=== PATIENT | male | born 1955 | race Caucasian/White ===

== ENCOUNTER 2020-03-04 22:53 | Inpatient (IN) | payer OTHER ==
[~2020-03-04] VITALS: Ht 167.6 cm; Wt 82.6 kg
[~2020-03-04 22:53] MED LIST: ATOR80TA PO; CLOP75TA33 PO; FURO-151 PO; FURO80TA87 MT; LEVO25TA7 PO; MIDO5TAB4 MT; POTA25TA8 PO
[2020-03-04] MEDS ORDERED: FUROSEMIDE 40MG/4ML VIAL IV ONE (23:45)
[2020-03-05 00:04] LABS: EOSINOPHILS % 0.4 % (0.0-5.0); HEMATOCRIT. 38.2 % (42.0-52.0); HEMOGLOBIN. 12.8 g/dL (14.0-18.0); LYMPHOCYTES % 19.2 % (20.0-50.0); MEAN CORPUSCULAR HEMOGLOBIN 31.7 pg (28.0-32.0); MEAN CORPUSCULAR VOLUME 94.8 fL (80.0-94.0); MEAN PLATELET VOLUME 9.1 fl (7.4-10.4); MONOCYTES % 10.3 % (2.0-8.0); NEUTROPHILS % 69.1 % (40.0-76.0); PLATELET 241 x1000/uL (130-400); RED BLOOD CELL COUNT 4.04 mill/uL (4.7-6.1); RED CELL DISTRIBUTION WIDTH 19.5 % (11.6-14.6)
[2020-03-05 00:08] LABS: CHLORIDE 89 mEq/L (98-107)
[2020-03-05 04:30] VITALS: BP 104/82
[2020-03-05] MEDS ORDERED: METO5TAB7 PO (05:34)
[2020-03-05] MEDS ORDERED: DEXTROSE 50% WATER 50ML SYRINGE IV PRN (06:45)
[2020-03-05] MEDS ORDERED: FUROSEMIDE 40MG/4ML VIAL IVP SCH (07:00)
[2020-03-05] MEDS ORDERED: NON FORMULARY PATIENT HOME MED XX SCH (07:00)
[2020-03-05] MEDS ORDERED: LEVOTHYROXINE SODIUM 25MCG TABLET PO SCH (07:20)
[2020-03-05] MEDS: INSULIN LISPRO 100 UNITS/ML SUBCUT SCH ×4 (07:34→22:01)
[2020-03-05] MEDS: BLOOD SUGAR DIAGNOSTIC STRIP TEST SCH ×4 (07:34→21:43)
[2020-03-05 08:00] VITALS: BP 101/74
[2020-03-05] MEDS: MIDODRINE HCL 5MG TABLET PO SCH ×2 (08:54→13:17)
[2020-03-05] MEDS: ENOXAPARIN 40MG/0.4ML SYR SUBCUT SCH (08:55)
[2020-03-05] MEDS: CLOPIDOGREL 75MG TABLET PO SCH (08:55)
[2020-03-05] MEDS: POTASSIUM CHLORIDE 20MEQ TABLET SR PO SCH (08:55)
[2020-03-05] MEDS ORDERED: MEDICATION NOT ON FORMULARY EA (Metolazone 5 MG) PO SCH (09:00)
[2020-03-05] MEDS ORDERED: POTASSIUM BICARB/CIT ACID 25 MEQ TABLET.EFF PO SCH (09:00)
[2020-03-05] MEDS: METOLAZONE 5MG TABLET PO SCH (10:37)
[2020-03-05 12:00] VITALS: BP 105/78
[2020-03-05 12:10] LABS: BG BASE EXCESS 1.3 mmol/L (-2.0-2.0); BG CARBOXYHEMOGLOBIN 0.5 % (0.5-1.5); BG DEOXYHEMOGLOBIN 5.3 % (0.0-5.0); BG FRACTION INSPIRED OXYGEN 21; BG HCO3 ACT 24.1 mmol/L (22.0-26.0); BG METHEMOGLOBIN 0.4 % (0.0-1.5); BG OXYGEN SATURATION 94.7 % (92.0-98.5); BG OXYHEMOGLOBIN 93.8 % (94.0-97.0); BG PCO2 32.4 mmHg (35.0-45.0); BG PO2 74.9 mmHg (75.0-100.0); BG SAMPLE SITE RIGHT RADIAL; BG VENT MODE ROOM AIR
[2020-03-05] MEDS ORDERED: AZITHROMYCIN 500 MG in DEXT 5% WATER 250 ML IV SCH (14:00)
[2020-03-05] MEDS ORDERED: CEFTRIAXONE 1 G PREMIX 50 ML IV SCH (14:00)
[2020-03-05] MEDS ORDERED: LEVOFLOXACIN 500MG PREMIX 100 ML IV SCH (15:00)
[2020-03-05 15:30] VITALS: BP 109/78
[2020-03-05] MEDS: FUROSEMIDE 100MG/10ML VIAL IVP SCH (17:24)
[2020-03-05] MEDS: IPRATROPIUM/ALBUTEROL 0.5-3(2.5)MG/3ML NEB HHN SCH (17:25)
[2020-03-05 20:00] VITALS: BP 93/66
[2020-03-05] MEDS: CARVEDILOL 3.125 MG TABLET PO SCH (21:00)
[2020-03-05] MEDS: ATORVASTATIN CALCIUM 40MG TABLET PO SCH (21:17)
[2020-03-06] VITALS (9 sets, daily range): BP systolic 86–108; BP diastolic 58–75
[2020-03-06] MEDS: IPRATROPIUM/ALBUTEROL 0.5-3(2.5)MG/3ML NEB HHN SCH ×4 (06:00→17:49)
[2020-03-06] MEDS: BLOOD SUGAR DIAGNOSTIC STRIP TEST SCH ×4 (07:37→21:47)
[2020-03-06] MEDS: INSULIN LISPRO 100 UNITS/ML SUBCUT SCH ×4 (07:37→21:00)
[2020-03-06] MEDS: LEVOTHYROXINE SODIUM 50MCG TABLET PO SCH (07:45)
[2020-03-06 08:40] LABS: T4 FREE 0.67 ng/dL (0.76-1.46)
[2020-03-06] MEDS: POTASSIUM CHLORIDE 20MEQ TABLET SR PO SCH (08:43)
[2020-03-06] MEDS: ASPIRIN 81MG TABLET PO SCH (08:43)
[2020-03-06] MEDS: CLOPIDOGREL 75MG TABLET PO SCH (08:43)
[2020-03-06] MEDS: FUROSEMIDE 100MG/10ML VIAL IVP SCH ×2 (08:44→17:48)
[2020-03-06] MEDS: ENOXAPARIN 40MG/0.4ML SYR SUBCUT SCH (08:45)
[2020-03-06] MEDS: CARVEDILOL 3.125 MG TABLET PO SCH ×2 (09:00→21:00)
[2020-03-06] MEDS: METOLAZONE 5MG TABLET PO SCH (11:07)
[2020-03-06] MEDS ORDERED: LACTULOSE 20G/30ML UDC PO SCH (13:45)
[2020-03-06] MEDS: LEVOFLOXACIN 250MG PREMIX 50 ML IV SCH (14:57)
[2020-03-06] MEDS ORDERED: BISACODYL 10MG SUPP PR PRN (18:45)
[2020-03-06] MEDS: ATORVASTATIN CALCIUM 40MG TABLET PO SCH (21:46)
[2020-03-07 04:00] VITALS: BP 102/68
[2020-03-07] MEDS: BLOOD SUGAR DIAGNOSTIC STRIP TEST SCH ×4 (06:31→21:24)
[2020-03-07] MEDS: LEVOTHYROXINE SODIUM 50MCG TABLET PO SCH (06:31)
[2020-03-07] MEDS: BISACODYL 5MG TABLET PO PRN (06:31)
[2020-03-07 07:33] LABS: BASOPHILS % 0.2 % (0.0-2.0); HEMATOCRIT. 35.5 % (42.0-52.0); HEMOGLOBIN. 11.5 g/dL (14.0-18.0); MEAN CORPUSCULAR HEMOGLOBIN 31.2 pg (28.0-32.0); MEAN CORPUSCULAR VOLUME 95.9 fL (80.0-94.0); MEAN PLATELET VOLUME 9.2 fl (7.4-10.4); MONOCYTES % 7.5 % (2.0-8.0); NEUTROPHILS % 83.3 % (40.0-76.0); PLATELET 194 x1000/uL (130-400); RED CELL DISTRIBUTION WIDTH 18.9 % (11.6-14.6)
[2020-03-07 08:00] VITALS: BP 106/73
[2020-03-07] MEDS: CARVEDILOL 3.125 MG TABLET PO SCH ×2 (09:00→20:55)
[2020-03-07] MEDS: POTASSIUM CHLORIDE 20MEQ TABLET SR PO SCH (09:07)
[2020-03-07] MEDS: ASPIRIN 81MG TABLET PO SCH (09:08)
[2020-03-07] MEDS: ENOXAPARIN 40MG/0.4ML SYR SUBCUT SCH (09:08)
[2020-03-07] MEDS: CLOPIDOGREL 75MG TABLET PO SCH (09:08)
[2020-03-07] MEDS: METOLAZONE 5MG TABLET PO SCH (09:09)
[2020-03-07] MEDS: FUROSEMIDE 100MG/10ML VIAL IVP SCH ×2 (09:11→16:15)
[2020-03-07] MEDS: INSULIN LISPRO 100 UNITS/ML SUBCUT SCH ×4 (09:20→21:00)
[2020-03-07] MEDS: IPRATROPIUM/ALBUTEROL 0.5-3(2.5)MG/3ML NEB HHN SCH ×3 (09:47→22:00)
[2020-03-07 12:00] VITALS: BP 98/72
[2020-03-07] MEDS: LEVOFLOXACIN 250MG PREMIX 50 ML IV SCH (15:16)
[2020-03-07 16:00] VITALS: BP 97/68
[2020-03-07] MEDS: PANTOPRAZOLE SODIUM 40 MG/VIAL IV SCH (16:15)
[2020-03-07] MEDS ORDERED: MORPHINE SULFATE 2 MG/ML CPJ (NOT FOR IM USE) IV NR (18:45)
[2020-03-07 18:51] LABS: CLARITY URINE CLOUDY (CLEAR); COLOR URINE ORANGE (YELLOW); KETONES URINE NEGATIVE (NEGATIVE); LEUKOCYTE ESTERASE URINE 1+ (NEGATIVE); NITRITE URINE NEGATIVE (NEGATIVE); OCCULT BLOOD URINE 3+ (NEGATIVE); PROTEIN URINE 3+ (NEGATIVE); SPECIFIC GRAVITY URINE 1.015 (1.005-1.030)
[2020-03-07 20:00] VITALS: BP 101/70
[2020-03-07] MEDS: ATORVASTATIN CALCIUM 40MG TABLET PO SCH (21:00)
[2020-03-08] VITALS: BP 107/62
[2020-03-08] MEDS: IPRATROPIUM/ALBUTEROL 0.5-3(2.5)MG/3ML NEB HHN SCH ×3 (03:04→15:07)
[2020-03-08 06:10] LABS: HEMATOCRIT. 33.1 % (42.0-52.0); MEAN CORPUSCULAR HEMOGLOBIN 30.9 pg (28.0-32.0); MEAN CORPUSCULAR VOLUME 93.6 fL (80.0-94.0); MEAN PLATELET VOLUME 9.3 fl (7.4-10.4); PLATELET 192 x1000/uL (130-400); RED BLOOD CELL COUNT 3.54 mill/uL (4.7-6.1); RED CELL DISTRIBUTION WIDTH 19.3 % (11.6-14.6)
[2020-03-08] MEDS: LEVOTHYROXINE SODIUM 50MCG TABLET PO SCH (06:34)
[2020-03-08] MEDS: BLOOD SUGAR DIAGNOSTIC STRIP TEST SCH ×4 (06:34→20:20)
[2020-03-08 06:41] LABS: CHLORIDE 89 mEq/L (98-107)
[2020-03-08 08:00] VITALS: BP 101/64
[2020-03-08] MEDS: CARVEDILOL 3.125 MG TABLET PO SCH (09:00)
[2020-03-08] MEDS: PANTOPRAZOLE SODIUM 40 MG/VIAL IV SCH ×2 (10:14→20:20)
[2020-03-08] MEDS: METOLAZONE 5MG TABLET PO SCH (10:15)
[2020-03-08] MEDS: FUROSEMIDE 100MG/10ML VIAL IVP SCH ×2 (10:15→17:36)
[2020-03-08] MEDS: POTASSIUM CHLORIDE 20MEQ TABLET SR PO SCH (10:15)
[2020-03-08] MEDS: INSULIN LISPRO 100 UNITS/ML SUBCUT SCH ×4 (10:18→20:56)
[2020-03-08] MEDS: LEVOFLOXACIN 250MG TABLET PO SCH (10:19)
[2020-03-08 12:00] VITALS: BP 97/67
[2020-03-08 13:07] LABS: PLATELET ESTIMATE NORMAL
[2020-03-08 18:45] LABS: HEPATITIS B SURFACE ANTIGEN NEGATIVE
[2020-03-08 19:14] LABS: HEPATITIS A AB IGM NEGATIVE (NEGATIVE)
[2020-03-08] MEDS: ATORVASTATIN CALCIUM 40MG TABLET PO SCH (20:20)
[2020-03-08] MEDS: BISACODYL 5MG TABLET PO PRN (20:20)
[2020-03-09] VITALS (20 sets, daily range): BP systolic 71–131; BP diastolic 34–76
[2020-03-09] MEDS: BLOOD SUGAR DIAGNOSTIC STRIP TEST SCH ×4 (06:36→21:06)
[2020-03-09] MEDS: LEVOTHYROXINE SODIUM 50MCG TABLET PO SCH (06:46)
[2020-03-09] MEDS ORDERED: FENTANYL CITRATE/PF 50MCG/ML 2ML VIAL ONE (08:22)
[2020-03-09] MEDS ORDERED: PROPOFOL 200MG/20ML VIAL IV ONE (08:22)
[2020-03-09] MEDS ORDERED: MIDAZOLAM HCL 2 MG/2 ML VIAL ONE (08:22)
[2020-03-09] MEDS ORDERED: DIPHENHYDRAMINE 50MG/ML VIAL ONE (08:23)
[2020-03-09] MEDS ORDERED: IODIXANOL 320MG/ML 100 ML BOTTLE IV ONE (08:35)
[2020-03-09] MEDS ORDERED: LIDOCAINE HCL 1% 20ML VIAL (Pyxis) INJ ONE ×2 (08:35→10:50)
[2020-03-09] MEDS: POTASSIUM CHLORIDE 20MEQ TABLET SR PO SCH ×2 (09:00→17:00)
[2020-03-09] MEDS ORDERED: CARVEDILOL 3.125 MG TABLET PO SCH (09:00)
[2020-03-09] MEDS: PANTOPRAZOLE SODIUM 40 MG/VIAL IV SCH ×2 (09:00→20:54)
[2020-03-09] MEDS ORDERED: METOLAZONE 2.5MG TABLET PO SCH (09:00)
[2020-03-09] MEDS: FUROSEMIDE 100MG/10ML VIAL IVP SCH ×3 (09:00→17:00)
[2020-03-09] MEDS: METOLAZONE 5MG TABLET PO SCH ×2 (09:00→13:51)
[2020-03-09] MEDS: MILRINONE 20MG-DEXT 5% PREMIX 100 ML IV SCH ×4 (10:00→23:18)
[2020-03-09] MEDS ORDERED: MILRINONE 20MG-DEXT 5% PREMIX 100 ML IV SCH (10:00)
[2020-03-09] MEDS ORDERED: SODIUM BICARBONATE 4% (2.4MEQ) 5ML VIAL IV ONE (10:50)
[2020-03-09] MEDS: INSULIN LISPRO 100 UNITS/ML SUBCUT SCH ×3 (12:20→21:00)
[2020-03-09] MEDS ORDERED: MORPHINE SULFATE 2 MG/ML CPJ (NOT FOR IM USE) IV PRN (13:30)
[2020-03-09] MEDS: LEVOFLOXACIN 250MG TABLET PO SCH (13:51)
[2020-03-09] MEDS: HYDROCODONE/ACETAMINOPHEN 5/325MG TABLET PO PRN (13:51)
[2020-03-09] MEDS ORDERED: POTASSIUM CHLORIDE 20MEQ/PACKET PO ONE (20:45)
[2020-03-09] MEDS: ATORVASTATIN CALCIUM 40MG TABLET PO SCH (20:54)
[2020-03-10] VITALS (16 sets, daily range): BP systolic 87–123; BP diastolic 40–70
[2020-03-10] MEDS: IPRATROPIUM/ALBUTEROL 0.5-3(2.5)MG/3ML NEB HHN SCH ×5 (01:42→20:39)
[2020-03-10] MEDS: LEVOTHYROXINE SODIUM 50MCG TABLET PO SCH (05:37)
[2020-03-10] MEDS: BLOOD SUGAR DIAGNOSTIC STRIP TEST SCH ×4 (05:57→21:14)
[2020-03-10 06:50] LABS: HEMATOCRIT. 30.7 % (42.0-52.0); HEMOGLOBIN. 10.4 g/dL (14.0-18.0); MEAN CORPUSCULAR HEMOGLOBIN 31.4 pg (28.0-32.0); MEAN PLATELET VOLUME 8.9 fl (7.4-10.4); PLATELET 144 x1000/uL (130-400); RED CELL DISTRIBUTION WIDTH 19.6 % (11.6-14.6)
[2020-03-10] MEDS: INSULIN LISPRO 100 UNITS/ML SUBCUT SCH ×4 (07:20→21:00)
[2020-03-10] MEDS: POTASSIUM CHLORIDE 20MEQ TABLET SR PO SCH (09:00)
[2020-03-10] MEDS: PANTOPRAZOLE SODIUM 40 MG/VIAL IV SCH ×2 (09:00→21:12)
[2020-03-10] MEDS: FUROSEMIDE 100MG/10ML VIAL IVP SCH ×2 (09:00→18:27)
[2020-03-10] MEDS: METOLAZONE 5MG TABLET PO SCH (09:00)
[2020-03-10] MEDS ORDERED: POTASSIUM CHLORIDE INJ 40 MEQ in DEXT 5% WATER 250 ML IV SCH (09:00)
[2020-03-10 10:20] LABS: PLATELET ESTIMATE NORMAL
[2020-03-10] MEDS ORDERED: PROPOFOL 200MG/20ML VIAL IV ONE (10:36)
[2020-03-10] MEDS ORDERED: MIDAZOLAM HCL 2 MG/2 ML VIAL ONE (10:36)
[2020-03-10] MEDS ORDERED: SUCCINYLCHOLINE CHLORIDE 200MG/10ML IV ONE (10:36)
[2020-03-10] MEDS ORDERED: LIDOCAINE HCL 1% 20ML VIAL (Pyxis) INJ ONE (10:36)
[2020-03-10] MEDS ORDERED: IODIXANOL 320MG/ML 100 ML BOTTLE IV ONE (10:50)
[2020-03-10] MEDS ORDERED: GENTAMICIN SULF 40MG/ML 2ML VIAL ONE (12:18)
[2020-03-10] MEDS ORDERED: HYDROCODONE/ACETAMINOPHEN 5/325MG TABLET PO PRN (13:00)
[2020-03-10] MEDS: LEVOFLOXACIN 250MG TABLET PO SCH (13:47)
[2020-03-10] MEDS: DOCUSATE SODIUM 250MG CAPSULE PO SCH ×2 (13:47→21:00)
[2020-03-10] MEDS: MILRINONE 20MG-DEXT 5% PREMIX 100 ML IV SCH ×3 (13:50→23:44)
[2020-03-10] MEDS ORDERED: POTASSIUM CHLORIDE 20MEQ TABLET SR PO NR (15:45)
[2020-03-10] MEDS: HYDROCODONE/ACETAMINOPHEN 5/325MG TABLET PO PRN (16:40)
[2020-03-10] MEDS ORDERED: POTASSIUM CHLORIDE INJ 40 MEQ in DEXT 5% WATER 250 ML IV NR (17:00)
[2020-03-10] MEDS: CARVEDILOL 3.125 MG TABLET PO SCH (21:00)
[2020-03-10] MEDS: ATORVASTATIN CALCIUM 40MG TABLET PO SCH (21:13)
[2020-03-10] MEDS: CEFAZOLIN 1000MG PREMIX 50 ML IV SCH (21:14)
[2020-03-10] MEDS: BISACODYL 5MG TABLET PO PRN (21:14)
[2020-03-11] VITALS (16 sets, daily range): BP systolic 87–107; BP diastolic 44–71
[2020-03-11] MEDS ORDERED: POTASSIUM CHLORIDE INJ 40 MEQ in DEXT 5% WATER 250 ML IV SCH (01:00)
[2020-03-11] MEDS: IPRATROPIUM/ALBUTEROL 0.5-3(2.5)MG/3ML NEB HHN SCH ×3 (01:51→13:33)
[2020-03-11] MEDS: CEFAZOLIN 1000MG PREMIX 50 ML IV SCH (05:42)
[2020-03-11] MEDS: BLOOD SUGAR DIAGNOSTIC STRIP TEST SCH ×4 (05:56→20:18)
[2020-03-11] MEDS: LEVOTHYROXINE SODIUM 50MCG TABLET PO SCH (05:56)
[2020-03-11 07:55] LABS: HEMATOCRIT. 30.3 % (42.0-52.0); HEMOGLOBIN. 10.1 g/dL (14.0-18.0); MEAN CORPUSCULAR HEMOGLOBIN 31.1 pg (28.0-32.0); MEAN PLATELET VOLUME 9.1 fl (7.4-10.4); PLATELET 120 x1000/uL (130-400); RED BLOOD CELL COUNT 3.26 mill/uL (4.7-6.1); RED CELL DISTRIBUTION WIDTH 19.7 % (11.6-14.6)
[2020-03-11] MEDS: PANTOPRAZOLE SODIUM 40 MG/VIAL IV SCH ×2 (08:37→20:27)
[2020-03-11] MEDS: FUROSEMIDE 100MG/10ML VIAL IVP SCH ×2 (08:37→17:05)
[2020-03-11] MEDS: INSULIN LISPRO 100 UNITS/ML SUBCUT SCH ×4 (08:37→20:20)
[2020-03-11] MEDS: ASPIRIN 81MG TABLET PO SCH (08:38)
[2020-03-11] MEDS: DOCUSATE SODIUM 250MG CAPSULE PO SCH ×2 (08:38→17:06)
[2020-03-11] MEDS: CLOPIDOGREL 75MG TABLET PO SCH (08:38)
[2020-03-11] MEDS: METOLAZONE 5MG TABLET PO SCH (08:38)
[2020-03-11] MEDS: POTASSIUM CHLORIDE 20MEQ TABLET SR PO SCH (08:38)
[2020-03-11] MEDS: CARVEDILOL 3.125 MG TABLET PO SCH ×2 (08:39→20:27)
[2020-03-11] MEDS ORDERED: POTASSIUM CHLORIDE 20MEQ TABLET SR PO NR ×3 (09:30→17:00)
[2020-03-11] MEDS ORDERED: ONDANSETRON HCL 4MG/2ML INJ IV PRN (09:30)
[2020-03-11] MEDS: MILRINONE 20MG-DEXT 5% PREMIX 100 ML IV SCH (10:03)
[2020-03-11] MEDS ORDERED: MIDODRINE HCL 5MG TABLET PO NR (10:45)
[2020-03-11] MEDS: LEVOFLOXACIN 250MG TABLET PO SCH (10:57)
[2020-03-11] MEDS: MIDODRINE HCL 5MG TABLET PO SCH ×2 (13:00→17:06)
[2020-03-11 14:25] LABS: PLATELET ESTIMATE SLIGHTLY DECREASED
[2020-03-11 16:51] LABS: BG BASE EXCESS 8.5 mmol/L (-2.0-2.0); BG CARBOXYHEMOGLOBIN 0.3 % (0.5-1.5); BG DEOXYHEMOGLOBIN 6.8 % (0.0-5.0); BG FRACTION INSPIRED OXYGEN 21; BG HCO3 ACT 32.5 mmol/L (22.0-26.0); BG METHEMOGLOBIN 0.3 % (0.0-1.5); BG OXYGEN SATURATION 93.2 % (92.0-98.5); BG OXYHEMOGLOBIN 92.6 % (94.0-97.0); BG PCO2 42.7 mmHg (35.0-45.0); BG PH 7.499 (7.350-7.450); BG PO2 64.8 mmHg (75.0-100.0); BG SAMPLE SITE RIGHT RADIAL; BG TOTAL HEMOGLOBIN 11.2 g/dL (12.0-18.0); BG VENT MODE ROOM AIR
[2020-03-11] MEDS: BISACODYL 10MG SUPP PR NR ×3 (17:07→17:17)
[2020-03-11] MEDS ORDERED: MAGNESIUM CITRATE 300ML SOLUTION PO NR (18:00)
[2020-03-11] MEDS: ATORVASTATIN CALCIUM 40MG TABLET PO SCH (20:27)
[2020-03-12] VITALS (8 sets, daily range): BP systolic 83–97; BP diastolic 50–70
[2020-03-12] MEDS: BISACODYL 5MG TABLET PO PRN (00:01)
[2020-03-12 06:41] LABS: HEMATOCRIT. 32.7 % (42.0-52.0); HEMOGLOBIN. 11.1 g/dL (14.0-18.0); MEAN CORPUSCULAR HEMOGLOBIN 31.3 pg (28.0-32.0); MEAN CORPUSCULAR VOLUME 92.5 fL (80.0-94.0); MEAN PLATELET VOLUME 9.2 fl (7.4-10.4); PLATELET 127 x1000/uL (130-400); RED BLOOD CELL COUNT 3.53 mill/uL (4.7-6.1); RED CELL DISTRIBUTION WIDTH 19.3 % (11.6-14.6)
[2020-03-12] MEDS: LEVOTHYROXINE SODIUM 50MCG TABLET PO SCH (06:50)
[2020-03-12] MEDS: BLOOD SUGAR DIAGNOSTIC STRIP TEST SCH (06:52)
[2020-03-12] MEDS: INSULIN LISPRO 100 UNITS/ML SUBCUT SCH (07:20)
[2020-03-12] MEDS: DOCUSATE SODIUM 250MG CAPSULE PO SCH (09:00)
[2020-03-12] MEDS ORDERED: FUROSEMIDE 40MG/4ML VIAL IVP SCH (09:00)
[2020-03-12] MEDS: CARVEDILOL 3.125 MG TABLET PO SCH (09:00)
[2020-03-12] MEDS ORDERED: FAMOTIDINE 20MG/2ML VIAL IV NR ×2 (09:30→10:45)
[2020-03-12] MEDS: POTASSIUM CHLORIDE 20MEQ TABLET SR PO SCH (09:33)
[2020-03-12] MEDS: CLOPIDOGREL 75MG TABLET PO SCH (09:33)
[2020-03-12] MEDS: PANTOPRAZOLE SODIUM 40 MG/VIAL IV SCH (09:33)
[2020-03-12] MEDS: IPRATROPIUM/ALBUTEROL 0.5-3(2.5)MG/3ML NEB HHN SCH (09:33)
[2020-03-12] MEDS: MIDODRINE HCL 5MG TABLET PO SCH (09:34)
[2020-03-12] MEDS: METOLAZONE 5MG TABLET PO SCH (09:34)
[2020-03-12] MEDS: ASPIRIN 81MG TABLET PO SCH (09:34)
[2020-03-12] MEDS ORDERED: SIMETHICONE 80MG TABLET CHEW PO NR (09:45)
[2020-03-12] MEDS ORDERED: POTASSIUM CHLORIDE 20MEQ TABLET SR PO NR (11:00)
[2020-03-12 13:48] LABS: PLATELET ESTIMATE SLIGHTLY DECREASED
== END 2020-03-12 11:56 | disposition home or self-care (01) | DRG 226 ==
LOC: ER 22:53 → MICUSO 03-05 01:45 → EDBEDREQTM 03-05 01:52 → EDBEDREQ 03-05 01:52 → 6WST 03-05 04:30 → 7WST 03-05 15:03 → 6WST 03-06 23:14 → 3WST 03-09 10:10
PROVIDERS: ADMIT Internal Medicine; ATTEND Internal Medicine
PROC: 02HV33Z Insertion of Infusion Device into Superior Vena Cava, Percutaneous Approach (ICD-10-PCS; 2020-03-09)
PROC: B548ZZA Ultrasonography of Superior Vena Cava, Guidance (ICD-10-PCS; 2020-03-09)
PROC: 02HP32Z Insertion of Monitoring Device into Pulmonary Trunk, Percutaneous Approach (ICD-10-PCS; principal; 2020-03-10)
PROC: 0JH608Z Insertion of Defibrillator Generator into Chest Subcutaneous Tissue and Fascia, Open Approach (ICD-10-PCS; 2020-03-10)
PROC: 0JH60FZ Insertion of Subcutaneous Defibrillator Lead into Chest Subcutaneous Tissue and Fascia, Open Approach (ICD-10-PCS; 2020-03-10)
PROC: B5171ZZ Fluoroscopy of Left Subclavian Vein using Low Osmolar Contrast (ICD-10-PCS; 2020-03-10)
DX: I13.0 Hypertensive heart and chronic kidney disease with heart failure and stage 1 through stage 4 chronic kidney disease, or unspecified chronic kidney disease (principal); I50.23 Acute on chronic systolic (congestive) heart failure; J18.9 Pneumonia, unspecified organism; J96.00 Acute respiratory failure, unspecified whether with hypoxia or hypercapnia; E87.1 Hypo-osmolality and hyponatremia; E46 Unspecified protein-calorie malnutrition; R17 Unspecified jaundice; I42.9 Cardiomyopathy, unspecified; E03.9 Hypothyroidism, unspecified; E66.9 Obesity, unspecified; I27.20 Pulmonary hypertension, unspecified; I07.1 Rheumatic tricuspid insufficiency; E11.22 Type 2 diabetes mellitus with diabetic chronic kidney disease; E11.65 Type 2 diabetes mellitus with hyperglycemia; I25.5 Ischemic cardiomyopathy; D72.810 Lymphocytopenia; E78.5 Hyperlipidemia, unspecified; D64.9 Anemia, unspecified; I25.10 Atherosclerotic heart disease of native coronary artery without angina pectoris; E87.6 Hypokalemia; I70.0 Atherosclerosis of aorta; R74.0 Nonspecific elevation of levels of transaminase and lactic acid dehydrogenase [LDH]; R16.1 Splenomegaly, not elsewhere classified; E78.00 Pure hypercholesterolemia, unspecified; N18.3 Chronic kidney disease, stage 3 (moderate); I27.29 Other secondary pulmonary hypertension; Z95.1 Presence of aortocoronary bypass graft; Z79.02 Long term (current) use of antithrombotics/antiplatelets; Z03.818 Encounter for observation for suspected exposure to other biological agents ruled out; Z79.82 Long term (current) use of aspirin; Z79.899 Other long term (current) drug therapy; Z68.29 Body mass index [BMI] 29.0-29.9, adult
CPT/HCPCS: 33216; 33249; 36415; 36600; 71045; 75820; 76700; 76937; 80048; 80053; 80076; 81003; 82270; 82375; 82805; 82962; 83036; 83735; 83880; 84132; 84439; 84443; 84481; 84484; 85025; 86705; 86709; 86803; 87340; 93005; 93451; 93970; 94618; 97162; 97530; 99285; A4565; C1722; C1725; C1893; C1899; C9113; J0330; J0456; J0690; J0696; J1200; J1580; J1644; J1650; J1815; J1940; J1956; J2250; J2260; J2270; J2405; J2704; J3010; J3480; J3490; J7060; Q9967; U0003-CS